=== PATIENT | female | born 1935 | race Caucasian/White ===

== ENCOUNTER 2017-08-24 09:21 | Day surgery (SDC) | payer MEDICARE ==
[~2017-08-24] VITALS: Ht 152.4 cm; Wt 59.4 kg
[~2017-08-24 09:21] MED LIST: ALENDRONATE SOD10 MG PO; ASPIR 8181 MG PO; CALCIUM500 M1 PO; CLARITIN10 M2 PO; CO Q10200 MG PO; COZAAR50 MG PO; EQ COMPLETE MU1 EAC1 PO; HAIR, SKIN & N1 EACH PO; HORSE CHESTNUT300 MG PO; K-TAB ER20 MEQ PO; LIPITOR40 MG PO; MACULAR HEALTH1 EACH PO; NITROSTAT0.4 MG SL; OMEGA 3 1,0001 EACH PO; OMEPRAZOLE20 MG PO; PROBIOTIC1 EAC1 PO; TUMERSAID TABL1 EACH PO; VITAMIN B122500 MCG
--- NOTE | 2017-08-24 11:58 | NUR ---
08/24/17 1158 Morenita Gorman 1108 PT ARRIVED IN PACU SLEEPY. PASSING FLATUS. 1130 PT AWAKE SIPPING ON WATER. 1140 GETTING DRESSED WITH STAND BY ASSIST.
--- NOTE | 2017-08-25 09:08 | OR ---
[facility] [address], [place] [address] Signed DATE OF OPERATION: 08/24/2017 SURGEON: Keven Damico MD PREOPERATIVE DIAGNOSES: 1. Personal history of colonic polyps in 2007. 2. Pandiverticulosis. 3. Internal and external hemorrhoids. POSTOPERATIVE DIAGNOSES: 1. A 5 mm polyp at 45 cm. 2. [id number] pandiverticulosis. 3. Minimal to moderate internal and external hemorrhoids. PROCEDURE: Colonoscopy with hot biopsy. ESTIMATED BLOOD LOSS: None. INDICATIONS: Luiz is a 81-year-old female who is still very active in fact she is taking care of her , who just had a mild stroke. Back in 2007, Luiz had multiple colonic polyps removed and one of those was adenomatous. She also has minimal to moderate right and left-sided diverticulosis along with minimal to moderate internal and external hemorrhoids. We rechecked her in 2012 and there were no polyps. She returns now for followup colonoscopy. In the office, we had a long discussion regarding her age and colonoscopies. She wanted to do a colonoscopy on this occasion with this probably being her last colonoscopy. She is very aware of colonoscopy along with its risks including, but not limited to gas bloating, crampy abdominal pain, bleeding, perforation, requiring surgery, and missed diagnosis. She also understands the need for the IV conscious sedation. She had expressed understanding and wished to proceed. PROCEDURE NOTE: Luiz was taken into our endoscopy suite and placed in the left lateral decubitus position. She was given 8 mg of Versed and 125 mcg of fentanyl to cover the case. A digital rectal exam was performed and she does have minimal to moderate external hemorrhoids. She has good sphincter tone. The adult colonoscope was then introduced and advanced under direct visualization of camera all the way up into the cecum under direct visualization of camera. Luiz is slight of build and her sigmoid colon Electronically Signed By: KEVEN DAMICO MD 08/25/17 0908 PATIENT NAME: LUIZ COLBERT OPERATIVE REPORT DATE OF : 39 REPORT #: [id number] PHYSICIAN: KEVEN DAMICO MD PCP: Evens MORRIS MD REPORT IS CONFIDENTIAL AND NOT TO BE RELEASED WITHOUT AUTHORIZATION [facility] [address], [place] [address] Signed specially somewhat narrow, so we did use a little extra sedation. The scope was then slowly withdrawn. We could easily see the peoria's foot and the ileocecal valve. She had a small 5 mm polyp at the mid right colon, which we removed with a hot biopsy forceps. Again, she has diverticulosis on the right and left sides. The rectum itself was unremarkable. She is so small, we were not able to retroflex the scope today in the rectum. We withdrew the scope very slowly and examined the anal canal and she does have minimal to moderate internal hemorrhoids as well. After this, the gas was suctioned out and the colonoscope removed. Luiz tolerated the procedure quite well. RECOMMENDATIONS: I will see Luiz back in my office in 7 to 14 days to review her results. Keven Damico MD ALB/MODL /[id number] cc: MD Keven Hill MD Iyad Jamali, MD Copies: Evens MORRIS MD, ANDREW L MD JAMALI, IYAD MD ~ Electronically Signed By: KEVEN DAMICO MD 08/25/17 0908 PATIENT NAME: LUIZ COLBERT OPERATIVE REPORT DATE OF : 39 REPORT #: [id number] PHYSICIAN: KEVEN DAMICO MD PCP: Evens MORRIS MD REPORT IS CONFIDENTIAL AND NOT TO BE RELEASED WITHOUT AUTHORIZATION
== END 2017-08-24 12:00 | disposition home or self-care (01) ==
LOC: OPS 09:21 → DS 09:21 → OPS 10:30
PROVIDERS: Colon & Rectal Surgery
PROC: 0DBF8ZZ Excision of Right Large Intestine, Via Natural or Artificial Opening Endoscopic (ICD-10-PCS; principal; 2017-08-24 10:30)
DX: Z12.11 Encounter for screening for malignant neoplasm of colon (principal); D12.2 Benign neoplasm of ascending colon; K64.8 Other hemorrhoids; K64.4 Residual hemorrhoidal skin tags; K57.30 Diverticulosis of large intestine without perforation or abscess without bleeding; I25.10 Atherosclerotic heart disease of native coronary artery without angina pectoris; I10 Essential (primary) hypertension; K21.9 Gastro-esophageal reflux disease without esophagitis; E78.5 Hyperlipidemia, unspecified; M19.90 Unspecified osteoarthritis, unspecified site; Z86.010 Personal history of colon polyps; Z98.890 Other specified postprocedural states; Z88.2 Allergy status to sulfonamides; Z91.041 Radiographic dye allergy status; Z91.013 Allergy to seafood; Z79.82 Long term (current) use of aspirin; Z79.899 Other long term (current) drug therapy
CPT/HCPCS: 88305; 99153; G0500; J2250; J3010; J7120